=== PATIENT | male | born 1945 | race Caucasian/White ===

== ENCOUNTER 2017-02-17 06:49 | Emergency (ER) | payer MEDICARE, OTHER ==
--- NOTE | 2017-02-17 07:15 | ED.PDOC ---
History of Present Illness - General Chief Complaint: Fever Stated Complaint: fever, chills, n/v/d Time Seen by Provider: 02/17/17 07:09 Source: patient, RN notes reviewed, Vital Signs reviewed Exam Limitations: no limitations - History of Present Illness Initial Comments: Patient started with nausea, vomiting and diarrhea about 2:30am today. + fever and chills. Reports he did throw up his lunch which was a frito pie. He also went to a wedding yesterday. Unsure if he came in contact with any bad food. Timing/Duration: this morning Fever Severity/Quality: subjective Fever Therapy METAL FABRICATOR HELPER: none Associated Symptoms: nausea/vomiting Review of Systems - Review of Systems Constitutional: States: chills, fever, malaise, weakness EENTM: States: no symptoms reported Respiratory: States: no symptoms reported Cardiology: States: no symptoms reported Gastrointestinal/Abdominal: States: see HPI, diarrhea, nausea, vomiting. Denies : abdominal pain Genitourinary: States: no symptoms reported Musculoskeletal: States: no symptoms reported Skin: States: no symptoms reported Neurological: States: no symptoms reported. Denies: headache Endocrine: States: no symptoms reported Hematologic/Lymphatic: States: no symptoms reported Past Medical History (General) - Patient Medical History Hx Seizures: No Hx Stroke: No Hx Dementia: No Hx Asthma: No Hx of COPD: No Hx Cardiac Disorders: Yes Hx Congestive Heart Failure: No Hx Pacemaker: No Hx Hypertension: Yes Hx Thyroid Disease: No Hx Diabetes: No Hx Gastroesophageal Reflux: No Hx Renal Disease: No Hx Cancer: No Hx of HIV: No Hx Hepatitis C: No Hx MRSA: No - Vaccination History Hx Tetanus, Diphtheria Vaccination: No Hx Influenza Vaccination: Yes Hx Pneumococcal Vaccination: Yes - Social History Hx Tobacco Use: No Hx Chewing Tobacco Use: No Hx Alcohol Use: No Hx Substance Use: No Hx Substance Use Treatment: No Hx Depression: No Hx Physical Abuse: No Hx Emotional Abuse: No Hx Suspected Abuse: No - Female History Patient : No Family Medical History - Family History Father Family History: Unknown Living Status: Hx Family Hypertension: Yes Hx Cardiac Disease: Yes Physical Exam - Physical Exam General Appearance: Lethargic, Ill Appearing ENT Exam: hearing grossly normal Neck: non-tender, full range of motion, supple, normal inspection Respiratory: chest non-tender, lungs clear, normal breath sounds, no respiratory distress, no accessory muscle use Cardiovascular/Chest: regular rate, rhythm, no edema, no gallop, no JVD, no murmur Gastrointestinal/Abdominal: non tender, soft, abnormal bowel sounds - hypoactive Extremity: normal range of motion, non-tender, normal inspection, no pedal edema Neurologic: no motor/sensory deficits, alert, normal mood/affect, oriented x 3 Skin Exam: normal color, warm/dry Lymphatic: no adenopathy Progress - Progress Progress: 02/17/17 08:58 Stomach is feeling better. No more nausea after Zofran. Up to urinate. Will plan to d/c home with Zofran Rx. Departure - Departure Clinical Impression: Gastroenteritis and colitis, viral Time of Disposition: 09:05 Disposition: Discharge to Home or Self Care Condition: Fair Departure Forms: ED Discharge - Pt. Copy, Patient Portal Self Enrollment Instructions: DI for Viral Gastroenteritis -- Adult Diet: resume usual diet Activity: increase activity as tolerated Prescriptions: Ondansetron [Zofran Odt] 4 mg PO Q4HR PRN #20 tab PRN Reason: Nausea/Vomiting Home Medications: Ambulatory Orders Amlodipine Besylate 2.5 mg PO DAILY 12/10/15 Fenofibrate 145 mg PO DAILY 12/10/15 Lisinopril 20 mg PO BID 12/10/15 Myrbetriq 2.5 mg PO DAILY 12/10/15 Nexium 40 mg PO BID 12/10/15 Propranolol HCl 120 mg PO DAILY 12/10/15 Sertraline HCl 100 mg PO DAILY 12/10/15 Simvastatin 20 mg PO DAILY 12/10/15 Ondansetron [Zofran Odt] 4 mg PO Q4HR PRN #20 tab 02/17/17
[2017-02-17] MEDS ORDERED: ONDANSETRON INJ 4 MG/2 ML VIAL IV ONE (07:16)
[2017-02-17] MEDS ORDERED: SODIUM CHLORIDE 0.9% 1000ML 1,000 ML IVS ONE (07:16)
[2017-02-17] MEDS ORDERED: ACETAMINOPHEN 500 MG TAB PO ONE (07:55)
[2017-02-17 09:30] VITALS: BP 135/72; TEMP 101.4; O2SAT 97
== END 2017-02-17 09:20 | disposition home or self-care (01) ==
LOC: ER 06:49
DX: A08.4 Viral intestinal infection, unspecified (principal); I10 Essential (primary) hypertension
CPT/HCPCS: 36415; 80053; 85025; J2405; J7030

== ENCOUNTER → 2017-04-11 | Outpatient (CLI) | payer MEDICARE, OTHER | END | disposition home or self-care (01) | LOC: GMAB 10:59 | PROVIDERS: ATTEND Family Medicine | DX: Z12.5 Encounter for screening for malignant neoplasm of prostate (principal); I10 Essential (primary) hypertension; D50.9 Iron deficiency anemia, unspecified | CPT/HCPCS: 82728; 83540; 83550; 84443; G0103 ==

== ENCOUNTER 2017-12-14 12:13 | Emergency (ER) | payer MEDICARE, OTHER ==
--- NOTE | 2017-12-14 12:47 | ED.PDOC ---
History of Present Illness - General Chief Complaint: Cardiovascular Problem Stated Complaint: palpitations Time Seen by Provider: 12/14/17 12:43 Source: patient Exam Limitations: no limitations - History of Present Illness Timing/Duration: 7-24 hours - began last savage and gradually slowed thru night, intermittent - has had episodes of heart racing and irregularity for years, resolved prior to arrival Severity: moderate Location: substernal Activities at Onset: none Prior Chest Pain/Cardiac Workup: cardiac cath - was negative Improving Factors: nothing Worsening Factors: nothing Nitro Today/Relief: no nitro taken today Aspirin Treatment Today: no aspirin today Associated Symptoms: weakness - had near syncope earlier today after sudden head turning (after palpitations were gone) Allergies/Adverse Reactions: Allergies Clarithromycin [From Biaxin] Allergy (Verified 04/06/16 08:07) Home Medications: Ambulatory Orders Amlodipine Besylate 2.5 mg PO DAILY 12/10/15 Fenofibrate 145 mg PO DAILY 12/10/15 Lisinopril 20 mg PO BID 12/10/15 Myrbetriq 2.5 mg PO DAILY 12/10/15 Nexium 40 mg PO BID 12/10/15 Propranolol HCl 120 mg PO DAILY 12/10/15 Sertraline HCl 100 mg PO DAILY 12/10/15 Simvastatin 20 mg PO DAILY 12/10/15 Ondansetron [Zofran Odt] 4 mg PO Q4HR PRN #20 tab 02/17/17 Review of Systems - Review of Systems Constitutional: States: malaise, weakness. Denies: diaphoresis EENTM: States: no symptoms reported Respiratory: Denies: cough, orthopnea, short of breath Cardiology: States: palpitations. Denies: chest pain, edema, syncope Gastrointestinal/Abdominal: Denies: abdominal pain, nausea, vomiting Genitourinary: States: no symptoms reported Musculoskeletal: States: neck pain - only with movement and is a chronic condition Skin: States: no symptoms reported Neurological: States: anxiety, weakness. Denies: headache, paresthesia Endocrine: States: no symptoms reported Past Medical History (General) - Patient Medical History Hx Seizures: No Hx Stroke: No Hx Dementia: No Hx Asthma: No Hx of COPD: No Hx Cardiac Disorders: Yes Hx Congestive Heart Failure: No Hx Pacemaker: No Hx Hypertension: Yes Hx Thyroid Disease: No Hx Diabetes: No Hx Gastroesophageal Reflux: No Hx Renal Disease: No Hx Cancer: No Hx of HIV: No Hx Hepatitis C: No Hx MRSA: No - Vaccination History Hx Tetanus, Diphtheria Vaccination: No Hx Influenza Vaccination: Yes Hx Pneumococcal Vaccination: Yes - Social History Hx Tobacco Use: No Hx Chewing Tobacco Use: No Hx Alcohol Use: No Hx Substance Use: No Hx Substance Use Treatment: No Hx Depression: No Hx Physical Abuse: No Hx Emotional Abuse: No Hx Suspected Abuse: No - Female History Patient : No Family Medical History - Family History Father Family History: Unknown Living Status: Hx Family Hypertension: Yes Hx Cardiac Disease: Yes Physical Exam - Physical Exam General Appearance: Alert, Comfortable Eyes, Ears, Nose, Throat Exam: PERRL/EOMI, pharynx normal Neck: non-tender, supple Respiratory: chest non-tender, lungs clear, normal breath sounds Cardiovascular/Chest: normal peripheral pulses, regular rate, rhythm, no edema Gastrointestinal/Abdominal: normal bowel sounds, non tender, soft Rectal Exam: deferred Extremity: normal range of motion, non-tender, no pedal edema Neurologic: alert, normal mood/affect, oriented x 3 Skin Exam: normal color, warm/dry Lymphatic: no adenopathy Progress - EKG/XRAY/CT EKG: Marvin, Sinus, no ST T wave changes Comments: rate 56, UT 180, QRS 90, QTc 399 Departure - Departure Clinical Impression: Palpitations, Tachycardia Disposition: Discharge to Home or Self Care Departure Forms: ED Discharge - Pt. Copy, Patient Portal Self Enrollment Instructions: DI for Chest Pain Referrals: Dinesh Salas MD [Primary Care Provider] - 1-2 Weeks Home Medications: Ambulatory Orders Amlodipine Besylate 2.5 mg PO DAILY 12/10/15 Fenofibrate 145 mg PO DAILY 12/10/15 Lisinopril 20 mg PO BID 12/10/15 Myrbetriq 2.5 mg PO DAILY 12/10/15 Nexium 40 mg PO BID 12/10/15 Propranolol HCl 120 mg PO DAILY 12/10/15 Sertraline HCl 100 mg PO DAILY 12/10/15 Simvastatin 20 mg PO DAILY 12/10/15 Ondansetron [Zofran Odt] 4 mg PO Q4HR PRN #20 tab 02/17/17
[2017-12-14 12:49] VITALS: TEMP 98.6; O2SAT 100
[2017-12-14 13:48] VITALS: BP 153/80
== END 2017-12-14 13:47 | disposition home or self-care (01) ==
LOC: ER 12:13
DX: R00.2 Palpitations (principal); R00.0 Tachycardia, unspecified; I10 Essential (primary) hypertension; Z79.899 Other long term (current) drug therapy

== ENCOUNTER → 2017-12-25 | Outpatient (CLI) | payer MEDICARE, OTHER | LOC: LAB 13:37 | PROVIDERS: ATTEND Urology | DX: R97.20 Elevated prostate specific antigen [PSA] (principal) ==

== ENCOUNTER 2018-01-23 20:34 | Emergency (ER) | payer MEDICARE, OTHER ==
[2018-01-23] MEDS ORDERED: METOPROLOL TARTRATE 25 MG TAB PO ONE (20:46)
--- NOTE | 2018-01-23 21:05 | RAD ---
EXAM DESCRIPTION: Chest,1 View CLINICAL HISTORY: new afib COMPARISON: 04/06/2016 FINDINGS: Cardiac silhouette is within normal limits. There is no focal parenchymal or pleural disease. Visualized osseous structures are within normal limits. IMPRESSION: No evidence of acute cardiopulmonary disease. Electronically signed by: Dariel Joshi 01/23/2018 9:04 PM ACCESS SERVICES ASSISTANT
[2018-01-23 21:07] VITALS: TEMP 98.4
[2018-01-23] MEDS ORDERED: ASPIRIN TABLET 325 MG TAB PO ONE (21:53)
[2018-01-23] MEDS ORDERED: diltiaZEM HCL TAB 30 MG TAB PO ONE (21:54)
--- NOTE | 2018-01-24 01:32 | ED.PDOC ---
History of Present Illness - General Chief Complaint: Cardiovascular Problem Stated Complaint: feel heart racing Time Seen by Provider: 01/23/18 20:38 Source: patient Exam Limitations: no limitations - History of Present Illness Initial Comments: the patient is a 72-year-old male presenting to the emergency room secondary to a feeling of palpitations starting today 3 hours before arrival.no chest pain. He has had periods of palpitations before in the past. No fevers. He has discussed this with his toy assembler however each time they have checked he has been in a normal sinus rhythm. No shortness of breath. No swelling. No syncope or near syncope. He normally only notices it when he gets still. The patient is obviously an atrial fibrillation with mild rapid ventricular rate Timing/Duration: unsure Severity: mild Improving Factors: nothing Worsening Factors: nothing Associated Symptoms: denies symptoms Allergies/Adverse Reactions: Allergies Clarithromycin [From Biaxin] Allergy (Verified 04/06/16 08:07) Home Medications: Ambulatory Orders Amlodipine Besylate 2.5 mg PO DAILY 12/10/15 Fenofibrate 145 mg PO DAILY 12/10/15 Lisinopril 20 mg PO BID 12/10/15 Myrbetriq 2.5 mg PO DAILY 12/10/15 Nexium 40 mg PO BID 12/10/15 Propranolol HCl 120 mg PO DAILY 12/10/15 Sertraline HCl 100 mg PO DAILY 12/10/15 Simvastatin 20 mg PO DAILY 12/10/15 Ondansetron [Zofran Odt] 4 mg PO Q4HR PRN #20 tab 02/17/17 Rivaroxaban [Xarelto] 20 mg PO DAILY #20 tablet 01/24/18 diltiaZEM HCL CD [Cardizem CD] 180 mg PO QD #20 cap 01/24/18 Review of Systems - Review of Systems Constitutional: States: no symptoms reported EENTM: States: no symptoms reported Respiratory: States: no symptoms reported Cardiology: States: palpitations Gastrointestinal/Abdominal: States: no symptoms reported Genitourinary: States: no symptoms reported Musculoskeletal: States: no symptoms reported Skin: States: no symptoms reported Neurological: States: no symptoms reported Endocrine: States: no symptoms reported Hematologic/Lymphatic: States: no symptoms reported All other Systems: No Change from Baseline Past Medical History (General) - Patient Medical History Hx Seizures: No Hx Stroke: No Hx Dementia: No Hx Asthma: No Hx of COPD: No Hx Cardiac Disorders: Yes Hx Congestive Heart Failure: No Hx Pacemaker: No Hx Hypertension: Yes Hx Thyroid Disease: No Hx Diabetes: No Hx Gastroesophageal Reflux: No Hx Renal Disease: No Hx Cancer: No Hx of HIV: No Hx Hepatitis C: No Hx MRSA: No Surgical History: appendectomy, cholecystectomy, other - Vaccination History Hx Tetanus, Diphtheria Vaccination: No Hx Influenza Vaccination: Yes Hx Pneumococcal Vaccination: Yes - Social History Hx Tobacco Use: No Hx Chewing Tobacco Use: No Hx Alcohol Use: No Hx Substance Use: No Hx Substance Use Treatment: No Hx Depression: No Hx Physical Abuse: No Hx Emotional Abuse: No Hx Suspected Abuse: No - Female History Patient : No Family Medical History - Family History Father Family History: Unknown Living Status: Hx Family Hypertension: Yes Hx Cardiac Disease: Yes Physical Exam - Physical Exam General Appearance: Alert Eye Exam: bilateral normal Ears, Nose, Throat: hearing grossly normal, normal ENT inspection, normal pharynx Neck: non-tender, full range of motion, supple, normal inspection Respiratory: chest non-tender, lungs clear, normal breath sounds, no respiratory distress, no accessory muscle use Cardiovascular/Chest: normal peripheral pulses, no edema, tachycardia Peripheral Pulses: radial,right: 2+, radial,left: 2+, dorsalis pedis,right: 2+, dorsalis pedis,left: 2+ Gastrointestinal/Abdominal: non tender, soft Rectal Exam: deferred Back Exam: normal inspection, no CVA tenderness, no vertebral tenderness Extremity: normal range of motion, non-tender, normal inspection, no pedal edema , normal capillary refill Neurologic: elastic cutter II-XII nml as tested, alert, normal mood/affect, oriented x 3 Skin Exam: normal color Comments: Vital Signs - 24 hr 01/23/18 01/23/18 01/23/18 20:45 21:10 21:40 Temperature 98.4 F Pulse Rate 115 H 107 H 86 Pulse Rate [ 112 H 107 H 86 left] Respiratory 18 18 18 Rate Blood Pressure 153/81 120/85 141/97 [left] O2 Sat by Pulse 118 H 98 98 Oximetry 01/23/18 01/23/18 01/23/18 22:10 22:40 23:10 Temperature Pulse Rate 78 82 Pulse Rate [ 78 83 82 left] Respiratory 18 18 18 Rate Blood Pressure 130/80 148/83 119/74 [left] O2 Sat by Pulse 98 96 97 Oximetry 01/23/18 01/24/18 01/24/18 23:40 00:10 00:45 Temperature Pulse Rate 75 79 81 Pulse Rate [ 76 79 81 left] Respiratory 18 18 18 Rate Blood Pressure 136/88 120/76 139/72 [left] O2 Sat by Pulse 96 98 98 Oximetry 01/24/18 01:12 Temperature Pulse Rate 71 Pulse Rate [ 77 left] Respiratory 18 Rate Blood Pressure 141/85 [left] O2 Sat by Pulse 98 Oximetry Progress - Progress Progress: 01/24/18 01:34 the patient's a 72-year-old male presenting to the emergency room secondary to feeling of palpitations that has been intermittent over the last year. This episode he noticed just a few hours before arrival. The patient is in atrial fibrillation with rapid ventricular rate. He has responded to a small dose of metoprolol in addition to a small dose of Cardizem. He is still in atrial fibrillation. The patient is going to be written for Cardizem CD 120 mg daily. He will also be written for xarelto for anticoagulant effect for now at 20 mg daily. He needs to follow up with his toy assembler as soon as possible for further evaluation and further adjustments of medications as deemed appropriate at the time. Cardiac enzymes are negative 2. Heart rate is well controlled. ER warnings were given for any worsening. - Results/Orders Results/Orders: Laboratory Results - last 24 hr 01/23/18 01/23/18 01/23/18 20:55 20:55 20:55 WBC 7.2 RBC 4.24 L Hgb 12.3 L Hct 35.9 L MCV 84.8 MCH 29.0 MCHC 34.3 RDW 13.6 Plt Count 272 MPV 8.0 Absolute Neuts (auto) 3.90 Absolute Lymphs (auto) 2.20 Absolute Monos (auto) 0.70 Absolute Eos (auto) 0.20 Absolute Basos (auto) 0.00 Neutrophils % 54.8 Lymphocytes % 31.0 Monocytes % 10.4 H Eosinophils % 3.3 Basophils % 0.5 PT 13.0 H INR 1.150 PTT (SP) 28.0 D-Dimer, Quantitative < 230 Sodium 140 Potassium 3.8 Chloride 104 Carbon Dioxide 26 Anion Gap 13.8 BUN 35 H Creatinine 1.58 H BUN/Creatinine Ratio 22.2 H Random Glucose 101 Serum Osmolality 287.5 Calcium 9.6 Magnesium 2.0 Total Bilirubin 0.6 AST 30 ALT 25 Alkaline Phosphatase 27 L Creatine Kinase 216 H* CK-MB (CK-2) 4.1 CK-MB (CK-2) % Not Reportable Troponin I 0.03 B-Natriuretic Peptide 157.0 H Serum Total Protein 7.2 Albumin 4.2 Globulin 3.0 Albumin/Globulin Ratio 1.4 TSH 2.49 Urine Color Urine Appearance Urine pH Ur Specific [place] Urine Protein Urine Glucose (UA) Urine Ketones Urine Blood Urine Nitrite Urine Bilirubin Urine Urobilinogen Ur Leukocyte Esterase Urine RBC Urine WBC Ur Epithelial Cells Urine Bacteria 01/23/18 01/24/18 21:03 00:40 WBC RBC Hgb Hct MCV MCH MCHC RDW Plt Count MPV Absolute Neuts (auto) Absolute Lymphs (auto) Absolute Monos (auto) Absolute Eos (auto) Absolute Basos (auto) Neutrophils % Lymphocytes % Monocytes % Eosinophils % Basophils % PT INR PTT (SP) D-Dimer, Quantitative Sodium Potassium Chloride Carbon Dioxide Anion Gap BUN Creatinine BUN/Creatinine Ratio Random Glucose Serum Osmolality Calcium Magnesium Total Bilirubin AST ALT Alkaline Phosphatase Creatine Kinase 191 H CK-MB (CK-2) 3.8 CK-MB (CK-2) % 1.99 Troponin I 0.03 B-Natriuretic Peptide Serum Total Protein Albumin Globulin Albumin/Globulin Ratio TSH Urine Color Yellow Urine Appearance Clear Urine pH 7.0 Ur Specific [place] 1.015 Urine Protein Negative Urine Glucose (UA) Negative Urine Ketones Negative Urine Blood Trace-intact H Urine Nitrite Negative Urine Bilirubin Negative Urine Urobilinogen 0.2 Ur Leukocyte Esterase Negative Urine RBC 0-1 Urine WBC 0-1 Ur Epithelial Cells 0 Urine Bacteria Rare EKG shows atrial fibrillation with rapid ventricular rate at a rate of 116 bpm. Mild T-wave inversion in lead 3. Normal R-wave progression. No other ST segment changes concerning for any ischemia. Chest x-ray shows no acute pathology. Departure - Departure Clinical Impression: Atrial fibrillation with rapid ventricular response Disposition: Discharge to Home or Self Care Condition: Fair Departure Forms: ED Discharge - Pt. Copy, Patient Portal Self Enrollment Instructions: DI for Atrial Fibrillation Diet: regular diet Activity: increase activity as tolerated Referrals: Dinesh Salas MD [Primary Care Provider] - 1-2 Weeks Prescriptions: diltiaZEM HCL CD [Cardizem CD] 180 mg PO QD #20 cap Rivaroxaban [Xarelto] 20 mg PO DAILY #20 tablet Home Medications: Ambulatory Orders Amlodipine Besylate 2.5 mg PO DAILY 12/10/15 Fenofibrate 145 mg PO DAILY 12/10/15 Lisinopril 20 mg PO BID 12/10/15 Myrbetriq 2.5 mg PO DAILY 12/10/15 Nexium 40 mg PO BID 12/10/15 Propranolol HCl 120 mg PO DAILY 12/10/15 Sertraline HCl 100 mg PO DAILY 12/10/15 Simvastatin 20 mg PO DAILY 12/10/15 Ondansetron [Zofran Odt] 4 mg PO Q4HR PRN #20 tab 02/17/17 Rivaroxaban [Xarelto] 20 mg PO DAILY #20 tablet 01/24/18 diltiaZEM HCL CD [Cardizem CD] 180 mg PO QD #20 cap 01/24/18 Additional Instructions: the patient's a 72-year-old male presenting to the emergency room secondary to feeling of palpitations that has been intermittent over the last year. This episode he noticed just a few hours before arrival. The patient is in atrial fibrillation with rapid ventricular rate. He has responded to a small dose of metoprolol in addition to a small dose of Cardizem. He is still in atrial fibrillation. The patient is going to be written for Cardizem CD 120 mg daily. He will also be written for xarelto for anticoagulant effect for now at 20 mg daily. He needs to follow up with his toy assembler as soon as possible for further evaluation and further adjustments of medications as deemed appropriate at the time. Cardiac enzymes are negative 2. Heart rate is well controlled. ER warnings were given for any worsening.
[2018-01-24] MEDS ORDERED: RIVAROXABAN 10 MG TAB PO ONE (01:42)
[2018-01-24 01:58] VITALS: BP 150/75; O2SAT 96
== END 2018-01-24 01:58 | disposition home or self-care (01) ==
LOC: ER 20:34
DX: I48.91 Unspecified atrial fibrillation (principal); I10 Essential (primary) hypertension; Z79.01 Long term (current) use of anticoagulants

== ENCOUNTER → 2018-04-15 | Outpatient (CLI) | payer MEDICARE, OTHER | LOC: GMAB 11:30 | PROVIDERS: ATTEND Family Medicine | DX: D53.9 Nutritional anemia, unspecified (principal); I10 Essential (primary) hypertension; Z12.5 Encounter for screening for malignant neoplasm of prostate | CPT/HCPCS: 82728; 83540; 83550; 84443; G0103 ==

== ENCOUNTER 2018-10-04 11:23 | Emergency (ER) | payer MEDICARE, OTHER ==
[2018-10-04 11:41] VITALS: TEMP 99.2
--- NOTE | 2018-10-04 11:56 | ED.PDOC ---
History of Present Illness - General Chief Complaint: Cardiovascular Problem Stated Complaint: Dizziness, palpitations Time Seen by Provider: 10/04/18 11:29 Source: patient Exam Limitations: no limitations - History of Present Illness Initial Comments: Pt has had episodes of dizziness and near syncope this am. Has hx of A.Fib and has been in that rhythm since last pm. Timing/Duration: 1/2 hour Severity: severe Activities at Onset: none Improving Factors: nothing Worsening Factors: nothing Nitro Today/Relief: no nitro taken today Aspirin Treatment Today: no aspirin today Associated Symptoms: weakness Allergies/Adverse Reactions: Allergies Clarithromycin [From Biaxin] Allergy (Verified 04/06/16 08:07) Home Medications: Ambulatory Orders Amlodipine Besylate 2.5 mg PO DAILY 12/10/15 Fenofibrate 145 mg PO DAILY 12/10/15 Lisinopril 20 mg PO BID 12/10/15 Myrbetriq 2.5 mg PO DAILY 12/10/15 Nexium 40 mg PO BID 12/10/15 Propranolol HCl 120 mg PO DAILY 12/10/15 Sertraline HCl 100 mg PO DAILY 12/10/15 Simvastatin 20 mg PO DAILY 12/10/15 Ondansetron [Zofran Odt] 4 mg PO Q4HR PRN #20 tab 02/17/17 Rivaroxaban [Xarelto] 20 mg PO DAILY #20 tablet 01/24/18 diltiaZEM HCL CD [Cardizem CD] 180 mg PO QD #20 cap 01/24/18 Review of Systems - Review of Systems Constitutional: States: weakness. Denies: chills, fever EENTM: States: no symptoms reported Respiratory: States: cough Cardiology: Denies: chest pain, edema, syncope Gastrointestinal/Abdominal: Denies: abdominal pain, nausea, vomiting Genitourinary: States: no symptoms reported Musculoskeletal: States: no symptoms reported Skin: States: no symptoms reported - Has had cough and congestion for several days and is taking Z-jesus alberto and Tessalon perles Neurological: States: weakness. Denies: headache Endocrine: States: no symptoms reported Hematologic/Lymphatic: States: no symptoms reported Past Medical History (General) - Patient Medical History Hx Seizures: No Hx Stroke: No Hx Dementia: No Hx Asthma: No Hx of COPD: No Hx Cardiac Disorders: No - A fib Hx Congestive Heart Failure: No Hx Pacemaker: No Hx Hypertension: Yes Hx Thyroid Disease: No Hx Diabetes: No Hx Gastroesophageal Reflux: No Hx Renal Disease: No Hx Cancer: No Hx of HIV: No Hx Hepatitis C: No Hx MRSA: No Surgical History: appendectomy, colectomy - Vaccination History Hx Tetanus, Diphtheria Vaccination: No Hx Influenza Vaccination: Yes - 2018 Hx Pneumococcal Vaccination: Yes - Social History Hx Tobacco Use: No Hx Chewing Tobacco Use: No Hx Alcohol Use: No Hx Substance Use: No Hx Substance Use Treatment: No Hx Depression: No Hx Physical Abuse: No Hx Emotional Abuse: No Hx Suspected Abuse: No - Female History Patient : No Family Medical History - Family History Father Family History: Unknown Living Status: Hx Family Hypertension: Yes Hx Cardiac Disease: Yes Physical Exam - Physical Exam General Appearance: Alert, Anxious, Obvious distress Eyes, Ears, Nose, Throat Exam: PERRL/EOMI, normal ENT inspection Neck: non-tender, full range of motion Respiratory: chest non-tender, lungs clear, normal breath sounds, no respiratory distress Cardiovascular/Chest: bradycardia, tachycardia, irregularly irregular Gastrointestinal/Abdominal: normal bowel sounds, non tender, soft Extremity: normal range of motion, non-tender, normal inspection, no pedal edema Neurologic: alert, normal mood/affect, oriented x 3 Skin Exam: normal color, warm/dry Progress - Progress Progress: 10/04/18 13:11 Dr Acosta consulted and recommended decreasing Sotolol to 40 mg BID from 80 mg - EKG/XRAY/CT EKG: Atrial, Fibrillation, no ST T wave changes Comments: pt has pauses in his rhythm lasting 2-3 sec's; rate 101, QRS 90, QTc 471; Departure - Departure Clinical Impression: Dizziness Atrial fibrillation Qualifiers: Atrial fibrillation type: paroxysmal Qualified Code(s): I48.0 - Paroxysmal atrial fibrillation Time of Disposition: 13:09 - take 40 mg Sotolol BID, call Dr Collins on Saturday Disposition: Discharge to Home or Self Care Departure Forms: ED Discharge - Pt. Copy, Patient Portal Self Enrollment Instructions: DI for Chest Pain Referrals: JOSEPHINE OLIVA MD [Primary Care Provider] - 1-2 Weeks Home Medications: Ambulatory Orders Amlodipine Besylate 2.5 mg PO DAILY 12/10/15 Fenofibrate 145 mg PO DAILY 12/10/15 Lisinopril 20 mg PO BID 12/10/15 Myrbetriq 2.5 mg PO DAILY 12/10/15 Nexium 40 mg PO BID 12/10/15 Propranolol HCl 120 mg PO DAILY 12/10/15 Sertraline HCl 100 mg PO DAILY 12/10/15 Simvastatin 20 mg PO DAILY 12/10/15 Ondansetron [Zofran Odt] 4 mg PO Q4HR PRN #20 tab 02/17/17 Rivaroxaban [Xarelto] 20 mg PO DAILY #20 tablet 01/24/18 diltiaZEM HCL CD [Cardizem CD] 180 mg PO QD #20 cap 01/24/18
--- NOTE | 2018-10-04 12:01 | RAD ---
EXAM DESCRIPTION: Chest,1 View CLINICAL HISTORY: congestion, cough COMPARISON: January 23, 2018 FINDINGS: The cardiac silhouette is at the upper limits of normal size for AP technique. Mediastinal contours are otherwise unremarkable. There is no airspace consolidation or pleural effusion. The bronchovascular markings are within normal limits, and the lungs are not hyperinflated. There is no pneumothorax or acute fracture. IMPRESSION: Negative exam. Electronically signed by: Aguila Kaplan MD 10/04/2018 12:00 PM [employer]ELOP[employer] CONSULTANT
[2018-10-04 13:33] VITALS: BP 157/94; O2SAT 99
== END 2018-10-04 13:33 | disposition home or self-care (01) ==
LOC: ER 11:23
DX: R42 Dizziness and giddiness (principal); I48.0 Paroxysmal atrial fibrillation; I10 Essential (primary) hypertension; Z79.899 Other long term (current) drug therapy; Z88.8 Allergy status to other drugs, medicaments and biological substances

== ENCOUNTER → 2018-12-31 | Outpatient (CLI) | payer MEDICARE, OTHER | LOC: LAB.O 14:56 | PROVIDERS: ATTEND Urology | DX: R97.20 Elevated prostate specific antigen [PSA] (principal) ==

== ENCOUNTER → 2019-04-20 | Outpatient (CLI) | payer MEDICARE, OTHER | LOC: GMAE 10:35 | PROVIDERS: ATTEND Family Medicine | DX: R97.20 Elevated prostate specific antigen [PSA] (principal); I10 Essential (primary) hypertension; E78.2 Mixed hyperlipidemia ==

== ENCOUNTER 2019-04-29 08:34 | Emergency (ER) | payer MEDICARE, OTHER ==
--- NOTE | 2019-04-29 09:02 | ED.PDOC ---
History of Present Illness - General Chief Complaint: GI Problem Stated Complaint: rectal bleeding Time Seen by Provider: 04/29/19 08:57 Information Source: patient Exam Limitations: no limitations - History of Present Illness Initial Comments: Tony Larsen 73 y/o male stated that he had bleeding on his rectum after having bowel movement this am.Stated had history of atrial fibrillation and taking anticoagulant Xarelto for 1/1/2 years.Denies hematemesis,abdominal pain,dizziness. Abdominal Pain Onset Location: other - NONE Pain Radiation: no radiation Quality: other - no abdominal pains Timing/Duration: 4-6 hours Improving Factors: nothing Worsening Factors: nothing Associated Symptoms: denies symptoms Review of Systems - Review of Systems Constitutional: States: no symptoms reported EENTM: States: no symptoms reported Respiratory: States: no symptoms reported Cardiology: States: no symptoms reported Gastrointestinal/Abdominal: States: see HPI Genitourinary: States: no symptoms reported Musculoskeletal: States: no symptoms reported Skin: States: no symptoms reported All other Systems: Reviewed and Negative, No Change from Baseline Past Medical History (General) - Patient Medical History Hx Seizures: No Hx Stroke: No Hx Dementia: No Hx Asthma: No Hx of COPD: No Hx Cardiac Disorders: No - A fib Hx Congestive Heart Failure: No Hx Pacemaker: No Hx Hypertension: Yes Hx Thyroid Disease: No Hx Diabetes: No Hx Gastroesophageal Reflux: No Hx Renal Disease: No Hx Cancer: No Hx of HIV: No Hx Hepatitis C: No Hx MRSA: No Surgical History: other - colonoscopy;colon resection-diverticulitis - Vaccination History Hx Tetanus, Diphtheria Vaccination: No Hx Influenza Vaccination: Yes - 2018 Hx Pneumococcal Vaccination: Yes - Social History Hx Tobacco Use: No Hx Chewing Tobacco Use: No Hx Alcohol Use: No Hx Substance Use: No Hx Substance Use Treatment: No Hx Depression: No Hx Physical Abuse: No Hx Emotional Abuse: No Hx Suspected Abuse: No - Female History Patient : No Family Medical History - Family History Father Family History: Unknown Living Status: Hx Family Hypertension: Yes Hx Cardiac Disease: Yes Physical Exam - Physical Exam General Appearance: Alert, Comfortable, No apparent distress Eyes, Ears, Nose, Throat Exam: PERRL/EOMI, normal ENT inspection Neck: non-tender, full range of motion, supple, normal inspection Respiratory: chest non-tender, lungs clear, normal breath sounds, no respiratory distress Cardiovascular/Chest: normal peripheral pulses, regular rate, rhythm, no murmur Peripheral Pulses: No deficit Gastrointestinal/Abdominal: non tender, soft, no organomegaly Rectal Exam: normal rectal tone, blood streaked stool Back Exam: no CVA tenderness Extremity: no pedal edema, no calf tenderness Neurologic: alert, oriented x 3 Skin Exam: normal color, warm/dry Progress - Progress Progress: 04/29/19 09:04 Vital Signs - 8 hr 04/29/19 08:40 Temperature 97.4 F L Pulse Rate [ 69 Pulse Ox] Respiratory 18 Rate Blood Pressure 149/91 [Left Arm] O2 Sat by Pulse 99 Oximetry 04/29/19 11:[address] Collins his nitrate operator recommended to stop Xarelto and advised patient to follow up with Dr. Lee automotive salesperson. 04/29/19 11:05 stated went to the bathroom and had just small amount of blood in stool. - Results/Orders Results/Orders: 04/29/19 09:05 IV Care:Saline Lock per Protoc QSHIFT 04/29/19 09:15 EKG STAT 04/29/19 09:25 FECAL OCCULT BLOOD Stat Laboratory Results - last 24 hr 04/29/19 04/29/19 04/29/19 09:05 09:15 09:36 WBC 6.7 RBC 4.15 L Hgb 12.0 L Hct 36.3 L MCV 87.6 MCH 29.0 MCHC 33.1 RDW 13.0 Plt Count 378 MPV 7.6 Absolute Neuts (auto) 4.50 Absolute Lymphs (auto) 1.30 Absolute Monos (auto) 0.60 Absolute Eos (auto) 0.20 Absolute Basos (auto) 0.00 Neutrophils % 66.8 Lymphocytes % 20.0 Monocytes % 9.5 H Eosinophils % 3.2 Basophils % 0.5 PT 14.0 H INR 1.40 H PTT (SP) 37.4 H Sodium 141 Potassium 4.0 Chloride 105 Carbon Dioxide 25 Anion Gap 15.0 BUN 28 H Creatinine 1.42 H BUN/Creatinine Ratio 19.7 Random Glucose 98 Serum Osmolality 286.7 Calcium 9.5 Magnesium 2.1 Total Bilirubin 0.7 Direct Bilirubin < 0.1 Indirect Bilirubin 0.6 AST 28 ALT 20 Alkaline Phosphatase 30 L Creatine Kinase 237 H* CK-MB (CK-2) 5.1 H* CK-MB (CK-2) % 2.15 Troponin I 0.04 Serum Total Protein 7.8 Albumin 4.0 Urine Color Yellow Urine Appearance Clear Urine pH 6.5 Ur Specific [place] 1.015 Urine Protein Negative Urine Glucose (UA) Negative Urine Ketones Negative Urine Blood Trace-intact H Urine Nitrite Negative Urine Bilirubin Negative Urine Urobilinogen 0.2 Ur Leukocyte Esterase Negative Urine RBC 0-1 Urine WBC 0-1 Ur Epithelial Cells 0-1 Urine Bacteria 0 Urine Mucus Trace Stool Occult Blood Positive Discuss all test result with patient and the call with Dr. Collins his nitrate operator - EKG/XRAY/CT EKG: Sinus, no ST T wave changes Comments: HR-64 Departure - Departure Clinical Impression: RB (rectal bleeding), History of atrial fibrillation, On continuous oral anticoagulation, Renal insufficiency Time of Disposition: 11:08 Disposition: Discharge to Home or Self Care Departure Forms: ED Discharge - Pt. Copy, Patient Portal Self Enrollment Instructions: Bloody Stools, Adult (DC) Referrals: JOSEPHINE OLIVA MD [Primary Care Provider] - 1-2 Weeks Home Medications: Ambulatory Orders Fenofibrate 145 mg PO DAILY 12/10/15 Lisinopril 20 mg PO BID 12/10/15 Sertraline HCl 100 mg PO DAILY 12/10/15 Simvastatin [Zocor] 20 mg PO DAILY 12/10/15 Rivaroxaban [Xarelto] 20 mg PO DAILY #20 tablet 01/24/18 Amlodipine Besylate 5 mg PO DAILY 04/29/19 Cefdinir 300 mg PO BID 04/29/19 Esomeprazole Magnesium 40 mg PO DAILY 04/29/19 Mirabegron [Myrbetriq] 25 mg PO DAILY 04/29/19 Sotalol HCl 80 mg PO BID 04/29/19 Additional Instructions: STOP YOUR XARELTO ;Continue with rest of home medications;Call up your GI specialist Dr. CRISÓTBAL CARROLL;Return to Emergency room as needed
[2019-04-29 11:29] VITALS: BP 145/82; TEMP 98.6; O2SAT 99
== END 2019-04-29 11:28 | disposition home or self-care (01) ==
LOC: ER 08:34
DX: K62.5 Hemorrhage of anus and rectum (principal); I48.91 Unspecified atrial fibrillation; N28.9 Disorder of kidney and ureter, unspecified; I11.0 Hypertensive heart disease with heart failure; Z79.01 Long term (current) use of anticoagulants; Z87.19 Personal history of other diseases of the digestive system; Z90.49 Acquired absence of other specified parts of digestive tract

== ENCOUNTER → 2019-08-14 | Outpatient (CLI) | payer MEDICARE, OTHER | LOC: RESP 13:44 | PROVIDERS: ATTEND Family Medicine | DX: R00.2 Palpitations (principal) ==

== ENCOUNTER 2019-11-12 12:55 | Emergency (ER) | payer MEDICARE, OTHER ==
[2019-11-12] MEDS ORDERED: ASPIRIN TABLET 325 MG TAB PO ONE (13:03)
[2019-11-12] MEDS ORDERED: ALUM & MAG HYDROX-SIMETHICONE 30 ML, LIDOCAINE VISCOUS 2% 15 ML PO ONE ×2 (13:03)
--- NOTE | 2019-11-12 13:33 | RAD ---
EXAM DESCRIPTION: Chest,2 Views CLINICAL HISTORY: left parasternal cp COMPARISON: October 04, 2018 FINDINGS: Two-view chest x-ray shows cardiomediastinal silhouette and pulmonary vasculature to be within normal limits. The lungs are normally aerated and clear. Costophrenic angles are sharp. Osseous structures are unremarkable. Moderate retrocardiac hiatal hernia with air-fluid level is again seen. IMPRESSION: No radiographic evidence of acute cardiopulmonary disease. Moderate retrocardiac hiatal hernia with air-fluid level is again seen. Electronically signed by: Mitchell Rangel MD 11/12/2019 1:31 PM [facility]
[2019-11-12] MEDS ORDERED: LIDOCAINE HCL 2% (MOUTH-THROAT) 15 ML UD ONE (13:44)
[2019-11-12] MEDS ORDERED: ALUM & MAG HYDROX-SIMETHICONE 30 ML UD ONE (13:44)
--- NOTE | 2019-11-12 17:24 | ED.PDOC ---
History of Present Illness - General Chief Complaint: Chest Pain/MA Time Seen by Provider: 11/12/19 13:02 Source: patient Exam Limitations: no limitations - History of Present Illness Initial Comments: The patient is a 74-year-old male presenting to the emergency room secondary to atypical chest pain just to the left of the mid sternum. It started when he was at rest. It was a pinching pulling type pain. At its worst it was about 6 but by the time he arrives here it is about a 3. No shortness of breath. No cough. No history of any coronary artery disease. In fact he has just recently had several risk stratifying studies with his solvent plant operator showing good results. He did have an ablation for atrial fibrillation about 6 weeks ago that has gone well. He is currently anticoagulated and on sotalol. No shortness of breath. 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 He also has a long-standing hiatal hernia that gives him symptoms periodically.it is a little bit worse with movement and with taking a deep breath. It is not really worse with palpation. Timing/Duration: 1 hour Severity: mild Improving Factors: nothing Worsening Factors: nothing Associated Symptoms: chest pain Allergies/Adverse Reactions: Allergies Clarithromycin [From Biaxin] Allergy (Verified 04/29/19 09:16) Other Causes him to be "sick" Home Medications: Ambulatory Orders Fenofibrate 145 mg PO DAILY 12/10/15 Lisinopril 20 mg PO BID 12/10/15 Sertraline HCl [Sertraline Hydrochloride] 100 mg PO DAILY 12/10/15 Simvastatin [Zocor] 20 mg PO DAILY 12/10/15 Rivaroxaban [Xarelto] 20 mg PO DAILY #20 tablet 01/24/18 Amlodipine Besylate 5 mg PO DAILY 04/29/19 Cefdinir 300 mg PO BID 04/29/19 Esomeprazole Magnesium 40 mg PO DAILY 04/29/19 Mirabegron [Myrbetriq] 25 mg PO DAILY 04/29/19 Sotalol HCl 80 mg PO BID 04/29/19 Review of Systems - Review of Systems Constitutional: States: no symptoms reported EENTM: States: no symptoms reported Respiratory: States: no symptoms reported Cardiology: States: chest pain Gastrointestinal/Abdominal: States: no symptoms reported Genitourinary: States: no symptoms reported Musculoskeletal: States: no symptoms reported Skin: States: no symptoms reported Neurological: States: no symptoms reported Endocrine: States: no symptoms reported All other Systems: No Change from Baseline Past Medical History (General) - Patient Medical History Hx Seizures: No Hx Stroke: No Hx Dementia: No Hx Asthma: No Hx of COPD: No Hx Cardiac Disorders: No - A fib Hx Congestive Heart Failure: No Hx Pacemaker: No Hx Hypertension: Yes Hx Thyroid Disease: No Hx Diabetes: No Hx Gastroesophageal Reflux: No Hx Renal Disease: No Hx Cancer: No Hx of HIV: No Hx Hepatitis C: No Hx MRSA: No - Vaccination History Hx Tetanus, Diphtheria Vaccination: No Hx Influenza Vaccination: Yes - 2018 Hx Pneumococcal Vaccination: Yes - Social History Hx Tobacco Use: No Hx Chewing Tobacco Use: No Hx Alcohol Use: No Hx Substance Use: No Hx Substance Use Treatment: No Hx Depression: No Hx Physical Abuse: No Hx Emotional Abuse: No Hx Suspected Abuse: No - Female History Patient : No Family Medical History - Family History Father Family History: Unknown Living Status: Hx Family Hypertension: Yes Hx Cardiac Disease: Yes Physical Exam - Physical Exam General Appearance: Alert, Comfortable, No apparent distress Eye Exam: bilateral normal Ears, Nose, Throat: hearing grossly normal, normal ENT inspection Neck: full range of motion, supple Respiratory: lungs clear, normal breath sounds, no respiratory distress, no accessory muscle use Cardiovascular/Chest: normal peripheral pulses, regular rate, rhythm, no edema Peripheral Pulses: radial,right: 2+, radial,left: 2+ Gastrointestinal/Abdominal: non tender, soft Rectal Exam: deferred Back Exam: no CVA tenderness, no vertebral tenderness Extremity: normal range of motion, non-tender, normal inspection, no pedal edema, normal capillary refill Neurologic: tip scourer II-XII nml as tested, alert, normal mood/affect, oriented x 3 Skin Exam: normal color Comments: Vital Signs - 24 hr 11/12/19 11/12/19 13:00 13:30 Temperature 97.1 F L Pulse Rate [ 67 63 right brachial] Respiratory 20 18 Rate Blood Pressure 147/90 149/82 [right brachial ] O2 Sat by Pulse 94 L 97 Oximetry Progress - Progress Progress: 11/12/19 17:26 the patient's a 74-year-old male presenting to the emergency room secondary to atypical chest pain. Initial and repeat cardiac enzymes are negative. EKG and chest x-ray are reassuring. Residual discomfort is very minimal. I have discussed the patient's findings, and in light of his recent studies with his solvent plant operator have given the patient the option of either staying for further observation or being allowed to go home. He has chosen to go home and has agreed to come back if he has any worsening whatsoever. I believe this is fairly low probability of being cardiac in origin. It seems more pleuritic in nature. He is to follow back up with his primary care doctor early next week otherwise. ER warnings were given. Continue his blood thinner and sotalol. elliot dillon [id number] - Results/Orders Results/Orders: Laboratory Tests 11/12/19 11/12/19 11/12/19 13:10 13:10 13:10 WBC 5.3 RBC 3.97 L Hgb 11.8 L Hct 34.9 L MCV 87.9 MCH 29.7 MCHC 33.8 RDW 14.3 Plt Count 265 MPV 7.9 Absolute Neuts (auto) 3.30 Absolute Lymphs (auto) 1.40 Absolute Monos (auto) 0.50 Absolute Eos (auto) 0.10 Absolute Basos (auto) 0.00 Neutrophils % 61.3 Lymphocytes % 26.9 Monocytes % 9.3 H Eosinophils % 2.1 Basophils % 0.4 PT 13.3 H INR 1.33 H PTT (SP) 29.0 D-Dimer, Quantitative 0.32 Sodium 138 Potassium 4.4 Chloride 103 Carbon Dioxide 25 Anion Gap 14.4 BUN 37 H Creatinine 1.32 H BUN/Creatinine Ratio 28.0 H Random Glucose 119 H Serum Osmolality 285.5 Calcium 9.6 Magnesium 1.9 Total Bilirubin 0.7 AST 28 ALT 23 Alkaline Phosphatase 25 L Creatine Kinase 110 CK-MB (CK-2) 3.7 CK-MB (CK-2) % Not Reportable Troponin I 0.03 B-Natriuretic Peptide 97.6 Serum Total Protein 6.9 Albumin 3.9 Globulin 3.0 Albumin/Globulin Ratio 1.3 11/12/19 16:36 WBC RBC Hgb Hct MCV MCH MCHC RDW Plt Count MPV Absolute Neuts (auto) Absolute Lymphs (auto) Absolute Monos (auto) Absolute Eos (auto) Absolute Basos (auto) Neutrophils % Lymphocytes % Monocytes % Eosinophils % Basophils % PT INR PTT (SP) D-Dimer, Quantitative Sodium Potassium Chloride Carbon Dioxide Anion Gap BUN Creatinine BUN/Creatinine Ratio Random Glucose Serum Osmolality Calcium Magnesium Total Bilirubin AST ALT Alkaline Phosphatase Creatine Kinase 108 CK-MB (CK-2) 3.5 CK-MB (CK-2) % Not Reportable Troponin I 0.03 B-Natriuretic Peptide Serum Total Protein Albumin Globulin Albumin/Globulin Ratio chest x-ray films show any acute pathology. Initial EKG showed normal sinus rhythm at 68 bpm. Normal axis. Normal R-wave progression. Borderline LVH criteria. No definitive ST segment or T-wave changes indicative of acute ischemia. Normal QT interval. Repeat EKG 3 hours later and looks essentially the same. Departure - Departure Clinical Impression: Chest pain, atypical Disposition: Discharge to Home or Self Care Condition: Fair Departure Forms: ED Discharge - Pt. Copy, Patient Portal Self Enrollment Diet: regular diet Activity: increase activity as tolerated Referrals: JOSEPHINE OLIVA MD [Primary Care Provider] - 1-2 Weeks Home Medications: Ambulatory Orders Fenofibrate 145 mg PO DAILY 12/10/15 Lisinopril 20 mg PO BID 12/10/15 Sertraline HCl [Sertraline Hydrochloride] 100 mg PO DAILY 12/10/15 Simvastatin [Zocor] 20 mg PO DAILY 12/10/15 Rivaroxaban [Xarelto] 20 mg PO DAILY #20 tablet 01/24/18 Amlodipine Besylate 5 mg PO DAILY 04/29/19 Cefdinir 300 mg PO BID 04/29/19 Esomeprazole Magnesium 40 mg PO DAILY 04/29/19 Mirabegron [Myrbetriq] 25 mg PO DAILY 04/29/19 Sotalol HCl 80 mg PO BID 04/29/19 Additional Instructions: the patient's a 74-year-old male presenting to the emergency room secondary to atypical chest pain. Initial and repeat cardiac enzymes are negative. EKG and chest x-ray are reassuring. Residual discomfort is very minimal. I have discussed the patient's findings, and in light of his recent studies with his solvent plant operator have given the patient the option of either staying for further observation or being allowed to go home. He has chosen to go home and has agreed to come back if he has any worsening whatsoever. I believe this is fairly low probability of being cardiac in origin. It seems more pleuritic in nature. He is to follow back up with his primary care doctor early next week otherwise. ER warnings were given. Continue his blood thinner and sotalol.
[2019-11-12 17:46] VITALS: TEMP 97; O2SAT 99
[2019-11-12 17:47] VITALS: BP 134/80
== END 2019-11-12 17:33 | disposition home or self-care (01) ==
LOC: ER 12:55
DX: R07.89 Other chest pain (principal); I48.91 Unspecified atrial fibrillation; M19.90 Unspecified osteoarthritis, unspecified site; K44.9 Diaphragmatic hernia without obstruction or gangrene; I10 Essential (primary) hypertension; Z79.01 Long term (current) use of anticoagulants; Z79.899 Other long term (current) drug therapy; Z88.1 Allergy status to other antibiotic agents

== ENCOUNTER 2020-03-12 20:19 | Emergency (ER) | payer MEDICARE, OTHER ==
--- NOTE | 2020-03-12 20:25 | ED.PDOC ---
History of Present Illness - General Time Seen by Provider: 03/12/20 20:25 - History of Present Illness Initial Comments: 74-year-old male presents with fishhook embedded in left thumb, occurring earlier today. Was unable to pull it out himself, cut off the shaft. Allergies/Adverse Reactions: Allergies Clarithromycin [From Biaxin] Allergy (Verified 04/29/19 09:16) Other Causes him to be "sick" Home Medications: Ambulatory Orders RX: Fenofibrate 145 mg PO DAILY 12/10/15 RX: Lisinopril 20 mg PO BID 12/10/15 RX: Sertraline HCl [Sertraline Hydrochloride] 100 mg PO DAILY 12/10/15 Simvastatin [Zocor] 20 mg PO DAILY 12/10/15 Rivaroxaban [Xarelto] 20 mg PO DAILY #20 tablet 01/24/18 Amlodipine Besylate 5 mg PO DAILY 04/29/19 Esomeprazole Magnesium 40 mg PO DAILY 04/29/19 Mirabegron [Myrbetriq] 25 mg PO DAILY 04/29/19 RX: Cefdinir 300 mg PO BID 04/29/19 RX: Sotalol HCl 80 mg PO BID 04/29/19 Cephalexin Monohydrate [Keflex] 500 mg PO TID #21 cap 03/12/20 Review of Systems - Review of Systems Review of Systems: 03/12/20 21:23 General: Denies generalized weakness, fever, arthralgia/myalgia HEENT: Denies sore throat, rhinorrhea Musculoskeletal: Denies extremity pain, extremity swelling Integument: Denies rash, itching, fish hook injury as in HPI Neuro: Denies focal weakness or numbness Past Medical History (General) - Patient Medical History Hx Seizures: No Hx Stroke: No Hx Dementia: No Hx Asthma: No Hx of COPD: No Hx Cardiac Disorders: No - A fib Hx Congestive Heart Failure: No Hx Pacemaker: No Hx Hypertension: Yes Hx Thyroid Disease: No Hx Diabetes: No Hx Gastroesophageal Reflux: No Hx Renal Disease: No Hx Cancer: No Hx of HIV: No Hx Hepatitis C: No Hx MRSA: No - Vaccination History Hx Tetanus, Diphtheria Vaccination: No Hx Influenza Vaccination: Yes - 2018 Hx Pneumococcal Vaccination: Yes - Social History Hx Tobacco Use: No Hx Chewing Tobacco Use: No Hx Alcohol Use: No Hx Substance Use: No Hx Substance Use Treatment: No Hx Depression: No Hx Physical Abuse: No Hx Emotional Abuse: No Hx Suspected Abuse: No - Female History Patient : No Family Medical History - Family History Father Family History: Unknown Living Status: Hx Family Hypertension: Yes Hx Cardiac Disease: Yes Physical Exam - Physical Exam Comments: General Appearance: Patient is awake and alert. Skin: Warm and dry. No diaphoresis. No rash or other lesions. Head: Normocephalic/atraumatic. Eyes: PERRL, lids, conjunctiva and sclera unremarkable. EOMI intact. ENT: No nasal discharge. Neck: Supple. Respiratory: Normal rate and effort. Cardiovascular: Regular rate. GI: Abdomen soft, non-distended and non-tender. No rebound/guarding. Bowel sounds normal. Back: No tenderness Musculoskeletal: Extremities- fish hook embedded in vental aspect R thumb. Normal range of motion. No effusion, cyanosis, edema. Neurological: Alert. No facial palsy. Speech clear. No motor deficit, str symmetric. No sensory deficit. Progress - Progress Progress: 03/12/20 21:25 Safety Stop Patient feels better after fish hook removal. VS, exam remain reassuring. I have discussed findings, diff dx, plan of care including [id number] abx, need for follow-up, and reasons to return to the ED. Safety Stop (Diagnostic Time-Out): Tachycardia: No Diagnostic Studies: Reviewed Diagnostic Certainty: moderate Patient/family feels safe with discharge: Yes Procedures - Foreign Body Removal Foreign Body Removal: fish hook - after digital block of thumb w marcaine 0.2%, small incision made above track of fish hook, extracted with forceps without complication. tl well. Departure - Departure Clinical Impression: Fish hook injury of finger of right hand ICD-10 Supporting Text: Fish hook removal Time of Disposition: 21:18 Disposition: Discharge to Home or Self Care Condition: Good Departure Forms: ED Discharge - Pt. Copy Instructions: DI for Wound Infection Referrals: JOSEPHINE OLIVA MD [Primary Care Provider] - 1-5 Days (as needed) Prescriptions: Cephalexin Monohydrate [Keflex] 500 mg PO TID #21 cap Home Medications: Ambulatory Orders RX: Fenofibrate 145 mg PO DAILY 12/10/15 RX: Lisinopril 20 mg PO BID 12/10/15 RX: Sertraline HCl [Sertraline Hydrochloride] 100 mg PO DAILY 12/10/15 Simvastatin [Zocor] 20 mg PO DAILY 12/10/15 Rivaroxaban [Xarelto] 20 mg PO DAILY #20 tablet 01/24/18 Amlodipine Besylate 5 mg PO DAILY 04/29/19 Esomeprazole Magnesium 40 mg PO DAILY 04/29/19 Mirabegron [Myrbetriq] 25 mg PO DAILY 04/29/19 RX: Cefdinir 300 mg PO BID 04/29/19 RX: Sotalol HCl 80 mg PO BID 04/29/19 Cephalexin Monohydrate [Keflex] 500 mg PO TID #21 cap 03/12/20 Additional Instructions: as discussed, start antibiotics only if worsening redness, swelling of thumb injury site. Comments: Manjeet Koenig MD Emergency Medicine #[id number]
[2020-03-12] MEDS ORDERED: BUPIVACAINE 0.25% INJ 30 ML VIAL INJ ONE (20:32)
[2020-03-12] MEDS ORDERED: TETANUS,DIPHTHERIA,PERTUSSIS 1 EA SYG IM ONE (20:36)
[2020-03-12 21:32] VITALS: BP 148/81; TEMP 98; O2SAT 98
== END 2020-03-12 21:27 | disposition home or self-care (01) ==
LOC: ER 20:19
DX: S61.041A Puncture wound with foreign body of right thumb without damage to nail, initial encounter (principal); I10 Essential (primary) hypertension; W26.8XXA Contact with other sharp object(s), not elsewhere classified, initial encounter; Y92.9 Unspecified place or not applicable

== ENCOUNTER → 2020-04-21 | Outpatient (CLI) | payer MEDICARE, OTHER | LOC: GMAE 11:04 | PROVIDERS: ATTEND Family Medicine | DX: Z12.5 Encounter for screening for malignant neoplasm of prostate (principal); I10 Essential (primary) hypertension; D50.9 Iron deficiency anemia, unspecified; R73.03 Prediabetes | CPT/HCPCS: 82728; 83540; 83550; 84443; G0103 ==